=== PATIENT | male | born 1945 | race African-American/Black ===

== ENCOUNTER 2021-06-19 12:44 | Emergency (ER) | payer OTHER ==
[~2021-06-19] VITALS: Ht 177.8 cm; Wt 95.3 kg
[2021-06-19 12:50] VITALS: BP 161/86
[2021-06-19 13:27] LABS: ABSOLUTE NEUTROPHILS 2.1 thou/uL (1.4-8.2); BASOPHILS 0.3 % (0.0-2.0); HEMATOCRIT 41.3 % (42.0-52.0); HEMOGLOBIN 13.6 gm/dL (14.0-18.0); LYMPHOCYTES 36.3 % (24.0-44.0); MCH 28.3 pg (26.0-34.0); MCV 85.6 fL (80.0-100.0); MONOCYTES 13.1 % (1.0-8.0); PLATELET COUNT 240 thou/uL (150-400); POLYS 49.3 % (36.0-66.0); RBC 4.82 mil/uL (4.50-6.00); RDW 15.5 % (10.5-14.5); WBC 4.2 thou/uL (4.0-11.0)
[2021-06-19 13:41] LABS: CALCIUM 8.8 mg/dL (8.5-10.1); CREATININE 1.2 mg/dL (0.7-1.3); POTASSIUM 4.5 mmol/L (3.5-5.1)
[2021-06-19 13:46] LABS: URINE BILIRUBIN NEGATIVE (Negative); URINE BLOOD NEGATIVE (Negative); URINE CLARITY CLEAR; URINE COLOR YELLOW; URINE GLUCOSE-RANDOM* NEGATIVE (Negative); URINE KETONES TRACE (Negative); URINE LEUKOCYTES-REFLEX NEGATIVE (Negative); URINE NITRITE-REFLEX NEGATIVE (Negative); URINE PROTEIN (DIPSTICK) TRACE (Negative); URINE SPECIFIC GRAVITY >= 1.030 (1.005-1.035); URINE UROBILINOGEN >= 8.0 E.U./dl (0.2-1.0)
[2021-06-19 13:48] LABS: ALBUMIN 3.6 g/dL (3.4-5.0); TOTAL BILIRUBIN 0.4 mg/dL (0.2-1.0); TOTAL PROTEIN 7.2 g/dL (6.4-8.2)
--- NOTE | 2021-06-19 14:42 | EKG ---
[place] [address] [facility] [place] 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 : 1945 Requested By: Kristina Mortensen Order Number: [id number] MD: Paulo Dominguez Measurements Intervals Rogers Rate: 71 P: 65 DE: 143 QRS: -18 QRSD: 69 T: 44 QT: 614 QTc: 668 Interpretive Statements Sinus rhythm Borderline left axis deviation Abnormal R-wave progression, early transition Borderline T abnormalities, anterior leads Prolonged QT interval No previous ECG available for comparison Electronically Signed On 06-19-2021 14:42:11 CDT by Paulo Dominguez [email or web address] <ELECTRONICALLY SIGNED> By: Paulo Dominguez MD, [facility] 06/19/21 1442 1331 1331 Paulo Dominguez MD, FACC /EPI
== END 2021-06-19 14:36 ==
LOC: ER 12:44
PROVIDERS: Physician Assistant
DX: F91.1 Conduct disorder, childhood-onset type (principal); F03.90 Unspecified dementia, unspecified severity, without behavioral disturbance, psychotic disturbance, mood disturbance, and anxiety; F98.8 Other specified behavioral and emotional disorders with onset usually occurring in childhood and adolescence; Z88.6 Allergy status to analgesic agent; Z20.822 Contact with and (suspected) exposure to COVID-19

== ENCOUNTER 2021-06-19 14:46 | Inpatient (IN) | payer OTHER ==
[~2021-06-19] VITALS: Ht 172.7 cm; Wt 69.0 kg
--- NOTE | 2021-06-19 15:37 | NUR ---
PATIENT 75 YEAR OLD MALE WHO ARRIVED ON UNIT AT 15:10 - RESIDES AT TERRACE - AGGRESSIVE AND THREATENING TO STAFF, ATTACKING PEERS WITH BUTTER KNIFE DURING CONFRONTATION IN DINING TATE, VOWING TO KILOL EVERYONE, THROWING THINGS AT PEOPLE, SEXUALLY INAPPROPRIATE BEHAVIOR - CLIMBING INTO BED WITH FEMALE PATIENTS, EXPOSING HIMSELF IN PUBLIC, MASTURBATING AND NOT RESPONDING POSITIVELY TO REDIRECTION TO STOP HIS BEHAVIOR. PATIENT ARRIVED CALM AND COOPERATIVE. DIFFICULT TO UNDERSTAND WHEN COMMUNICATING WITH STAFF. STATES USES WALKER AND WHEELCHAIR AT FACILITY - HAS ABNORMAL GAIT AND UNSTEADY AT TIMES PER PATIENT AND FACILITY. HAS BEEN ON SEROQUEL AND INCREASED STEADILY. PATIENT STATES HAD FLU SHOT LAST FALL AND NO COVID VACCINES. PATIENT HAS HISTORY OF CHF, MALNUTRITION, CKD, DYSPHAGIA, URINE RETENTION BPH, HYPOKALEMIA. ALLERGIC TO DIPHENHYDRAMINE, BENADRYL. PATIENT GUARDIAN COUSIN JAMILA FOX AT [phone]. PATIENT ON REGULAR DIET - CHANGED INTO YELLOW SHIRT AND SOCKS.
[2021-06-19 20:08] VITALS: BP 153/65
--- NOTE | 2021-06-20 02:35 | NUR ---
06-19-21 CARE TRANSFERRED 0 OBSERVED PT SITTING IN DAY ROOM SOCIALIZING WITH OTHERS. LATER PT AAOX2, VSS, RR EVEN AND NONLABORED ON RA. PT DENIES SI/HI AND PAIN. PT PRESENTS PLESANT, CALM AND COOPEATIVE, PT SOFT SPOKEN AND HAS DIFFICULTIE ARTICULATING WORDS, PT VERY WILLING TO COMMUNICATE. DURING MEDICATION ADMIN PT HAD NO DIFFICULTIES TAKING MEDICATION WHOLE. PT WILL CONTINUE TO BE MONITOR PER [facility] PROTOCOL.
[2021-06-20 06:53] LABS: CHOLESTEROL 201 mg/dL (<200); HDL CHOLESTEROL 41 mg/dL (>40); LDL CHOLESTEROL 137 mg/dL (<100); TC:HDL 4.9 Ratio (Not establshd); TRIGLYCERIDE 117 mg/dL (<150); VLDL 23 mg/dL (<40)
[2021-06-20 06:56] LABS: SERUM ASSESSMENT Clear
[2021-06-20 07:22] LABS: FOLIC ACID 13.3 ng/mL (8.6-58.9)
[2021-06-20 09:18] VITALS: BP 133/78
--- NOTE | 2021-06-20 16:05 | EKG ---
[place] [address] [facility] [place] [address] ELECTROCARDIOGRAM REPORT Name: ESTEBAN HARDIN Room #: 52-B ADM IN M.R.#: [id number] Admission: 06/19/21 Attend Phys: Oumar Orosco DO Discharge: Date of : 45 Report #: [id number] 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 : 1945 Requested By: Oumar Orosco Order Number: [id number] MD: Paulo Dominguez Measurements Intervals Chaplin Rate: 67 P: 59 LA: 142 QRS: -17 QRSD: 86 T: 17 QT: 476 QTc: 503 Interpretive Statements Sinus rhythm Borderline left axis deviation Abnrm T, consider ischemia, anterolateral lds Prolonged QT interval No previous ECG available for comparison Electronically Signed On 06-20-2021 16:05:26 CDT by Paulo Dominguez [email or web address] <ELECTRONICALLY SIGNED> By: Paulo Dominguez MD, [facility] 06/20/21 1605 D: 07/0 1010 Paulo Dominguez MD, FACC /EPI
--- NOTE | 2021-06-20 17:40 | NUR ---
Assumed pt care at 0700. pt was in the day room. Alert and oriented to person. pt was calm and cooperative with care. Denies si/hi, denies pain. Vital stable, lungs clear on auscultation. Pt took meds whole with thin liquid, no difficulty noted. Ambulates with a w/c. No sign of acute distress noted upon assessment. At this time pt is in the day room. Will continue to monitor.
[2021-06-20 20:14] VITALS: BP 151/73
[2021-06-20 23:06] LABS: GLYCOHEMOGLOBIN (HGB A1C) 5.7 % (4.8-5.6)
--- NOTE | 2021-06-21 03:53 | NUR ---
06-20-21 CARE TRANSFERRED 1899. LATER PT AAOX2, VSS, RR EVEN AND NONLABRED ON RA, PT DENIES PAIN AND SI/HI. PT PRESENTS PLESANT, CALM AND COOPEATIVE. DURING MEDICATIN ADMIN PT HAD NO DIFFICULTIES. PT WILL CONTINUE TO BE MONITOR PER [facility] PROTOCOL.
--- NOTE | 2021-06-21 08:42 | NUR ---
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 PMH: CHF, CKD, hx malnutrition, hx dysphagia, hx COVID+, schizophrenia. Noted with good intakes >75% since admit. BLE edema present. Chol 201, A1c 5.7, TSH, folate and B12 WNL. Current weight/BMI appropriate. Will follow weight and intakes; low nutrition risk at this time.
[2021-06-21 09:27] VITALS: BP 138/82
[2021-06-21 13:38] LABS: URINE BILIRUBIN NEGATIVE (Negative); URINE BLOOD 2+ (Negative); URINE CLARITY CLEAR; URINE COLOR YELLOW; URINE GLUCOSE-RANDOM* NEGATIVE (Negative); URINE KETONES NEGATIVE (Negative); URINE LEUKOCYTES-REFLEX NEGATIVE (Negative); URINE NITRITE-REFLEX NEGATIVE (Negative); URINE PROTEIN (DIPSTICK) TRACE (Negative); URINE UROBILINOGEN >= 8.0 E.U./dl (0.2-1.0)
--- NOTE | 2021-06-21 13:42 | NUR ---
Assumed pt care at 0700. pt was in the day room. Alert and oriented to self. Denies si/hi, c/o of lower abdominal pain. Pt took meds whole, no difficulty noted. AMbulates with a w/c. pt is a one person assist. Magnesium hydroxide and Polyethylene glycol was administered. Reassessment pt had a formed bowel movement. Calm and cooperative with care.Reassessement pt denies stomach pain. Pt is currently in the day room watching TV. UA collected and sent to Lab. Will continue to Monitor pt.
[2021-06-21 14:11] LABS: CASTS None Seen /LPF (None Seen); SQUAMOUS 0-3 Few /LPF (0-3)
[2021-06-21 14:12] LABS: BACTERIA-REFLEX 1-9 Few /HPF (None Seen); CRYSTALS None Seen /LPF (None Seen); MUCUS 0-3 Light strn/LPF (None Seen); URINE RBC >20 Many /HPF (NONE SEEN); URINE WBC-REFLEX 0-5 Rare /HPF (0-5)
--- NOTE | 2021-06-21 16:23 | H ---
[facility] [address] [place] [address] HISTORY AND PHYSICAL Name: ESTEBAN HARDIN Room #: 521B-B ADM IN M.R.#: [id number] Admission: 06/19/21 Attend Phys: Oumar Orosco DO Discharge: Date of : 45 Report #: [id number] THIS REPORT FOR: cc: FAM - Family physician unknown FAM - Family physician unknown Oumar Orosco DO ~ DATE OF SERVICE: 06/19/2021 INPATIENT PSYCHIATRIC EVALUATION ATTENDING PSYCHIATRIST: Oumar Orosco DO OLIVER FILTER OPERATOR: Melissa Augustin and Ramiro Fox MD, and his hospitalist team. SOURCES OF INFORMATION: Emergency room records, records from [facility], and brief interview with the patient. I left a voicemail with his cousin and guardian, Landon Yeung, to page me, so add information. REASON FOR ADMISSION: Aggressive at [facility], threatening staff and patients with a butter knife, threatening to kill everyone, throwing things at people, pulling penis out and masturbating in the dining room. Recently, his quetiapine was increased. He was sent to [facility] and sent back to [facility]. HISTORY OF PRESENT ILLNESS: A 75-year-old black male. He was sent out from [facility] to [facility]. The patient had an incident of threatening others with butter knife, also threatening to kill people, allegedly pulling out his penis and masturbating, recently [facility] out to [facility] CURRENT MEDICAL PROBLEMS/PAST MEDICAL HISTORY: Congestive heart failure, malnutrition, abnormal gait, chronic kidney disease, dysphagia, urinary retention, hypokalemia. ALLERGIES: CODEINE, DIPHENHYDRAMINE. PRIMARY CARE PROVIDER: His primary care physician is Dr. Wilian Flaherty at [phone]. The patient otherwise has [facility] appointed guardian. COVID is negative on 06/18/2021 at [facility]. INFORMATION FROM THE NURSING FACILITY: Recent medications have included vitamin D3, MiraLax, Toviaz, Flomax, Nuedexta, Flonase, loratadine, Risperdal, Seroquel, melatonin, sertraline, lactulose, Depakote. Actually, I got a longer med list but [facility] [address] [place] [address] HISTORY AND PHYSICAL Name: ESTEBAN HARDIN Room #: 521B-B ADM IN M.R.#: [id number] Admission: 06/19/21 Attend Phys: Oumar Orosco DO Discharge: Date of : 45 Report #: [id number] it is cut off partially, but appears to be Neudexta, loratadine, risperidone, and Seroquel. Seroquel was allegedly up to 150 mg twice a day and 400 mg at bedtime. He was on Depakote sprinkles as well 375 mg 1 time a day at seizures and 250 mg at bedtime. More recent notes have included exhibiting in front of female resident, was later sent out to [facility] on 06/15/2021. Looking through his [facility] diagnoses, he appears to be demented. There is a diagnosis of encephalopathy and schizophrenia. I do not see a dementia on documentation. LABORATORY DATA: White count 4.2, H and H 13.6 and 41.3, platelet count 240. Electrolytes: Sodium 139, potassium 4.3, chloride 107, bicarbonate 22, anion gap 10, BUN 17, creatinine 1.0, estimated GFR 72, glucose 81, calcium 8.8, AST 16, ALT 8, alkaline phosphatase 57, total protein 7.2, albumin 3.6, triglycerides 117, cholesterol 201, LDL 137, HDL 41. B12 of 445, folate 13.3. TSH 0.865. Urinalysis: Trace protein, trace ketones, greater than 8 urobilinogen, otherwise negative. COVID-19 Arzola test was negative. MEDICATIONS: Currently in the hospital, MiraLax 17 g oral daily, vitamin D 2000 international units oral daily, Seroquel 100 mg oral 3 times a day at 9:00 a.m., 3:00 p.m., and 9 p.m., Depakote DR 275 mg p.o. b.i.d., Zofran 4 mg q. 6 hours p.r.n., otherwise just house p.r.n. like Tylenol, Cepacol. VITAL SIGNS: Today, temperature 36.2, pulse 69, respirations 17, BP 132/70, O2 sat 99%. Additional information from the emergency room. REVIEW OF SYSTEMS: Unable to be obtained due to his speaking problems and dementia. Weight 95.26 kilos. PHYSICAL EXAMINATION: Grossly negative. EKG was done, shows sinus rhythm, rate 77. Left axis deviation, no ST changes, no STEMI, QTc prolonged at 668. I have ordered EKG to be repeated today. Unable at this time to obtain social and developmental history due to being unable to reach the guardian and the patient's mentation. MENTAL STATUS EXAMINATION: Ill appearing, age-appearing black male. Attention limited. Concentration limited. The patient knew he was in the hospital, but stated month was April. Speech abnormal, some degree of dysarthria. Thought content with relative poverty. mood/affect- smiling at times but often constricted, difficult to ascertain given dysarthria [facility] [address] [place] [address] HISTORY AND PHYSICAL Name: ESTEBAN HARDIN Room #: 521B-B ADM IN M.R.#: [id number] Admission: 06/19/21 Attend Phys: Oumar Orosco DO Discharge: Date of : 45 Report #: [id number] Denied suicidal or homicidal ideations. No auditory, visual, or tactile hallucination. Memory known to be impaired. Insight impaired. Fund of knowledge well below average. FORMULATION: A 75-year-old black male sent out from [facility] with progressive disinhibited behavior. DIAGNOSES: At this time, major neurocognitive disorder, etiology unspecified with behavioral disturbance, schizophrenia, major depression by history. Patient's medical comorbidities include chronic diastolic heart failure, hypertension, chronic kidney disease, history of COVID-19 infection without sequelae. PLAN: The patient is admitted by guardian to the Geriatric Psychiatry Unit. Evaluate, stabilize. Hospitalist is consulted. I reduced his Seroquel to 100 mg 3 times a day. He is not on Nuedexta; in this hospital, it is nonformulary. We will see what his EKG looks like today. We really want to get that QTc under 550 milliseconds.- later I checked and repeat EKG was 503 ms ESTIMATED LENGTH OF STAY: 5-10 days. STRENGTHS: He is insured, has a guardian has placement. WEAKNESSES: Advanced dementia and numerous medical comorbidities. Time spent on this case about 55 minutes. I got paged back from cousin who is his guardian, She states a nurse at [facility] was not treating him nice and that is why he has been not behvaing well. She reports him being lifetime illiterate and very low education. She does not view him as demented. I discussed it was hard to diagnose dementia in somone with very low level of education who cannot talk or read. <ELECTRONICALLY SIGNED> By: Oumar Orosco DO 06/21/21 1623 1056 1303 Oumar Orosco DO /nt
[2021-06-21 16:24] VITALS: BP 123/71
--- NOTE | 2021-06-22 04:20 | NUR ---
06-21-21 CARE TRANSFERRED 0 OBSERVED PT SITTING IN W/CHAIR AT TABLE IN DAY ROOM. PT AAOX2, VSS, RR EVEN AND NONLABORED ON RA, PT DENIES PAIN AND SI/HI. PT REPORTED HE WAS READY FOR HIS MEDICATION. DURING MEDICATIN ADMIN PT HAD NO DIFFICLTIES TAKING MEDICATION WHOLE WITH WATER, THEN PT WAS TAKEN WITH MECHANISM ASSEMBLER ASSISTANCE TO BED. LATER ASSISTED PT WILL BED ADJUSTED FOR COMFORT, BED IN LOWEST POSITION, LOCKED AND ALARM ON. PT WILL CONTINUE TO BE MONITOR PER [facility] PROTCOL.
--- NOTE | 2021-06-22 10:01 | NUR ---
PT ALERT AND ORIENTED TIMES THREE. VSS. PT DENIES SI/HI/AH/VH/PAIN/SOA. PT INTERACTS WELL WITH STAFF AND PEERS. PT ATTENDS GROUPS. PT TOLERATES MEDS AND MEALS. WILL CONTINUE TO MONITOR.
[2021-06-22 10:22] VITALS: BP 144/66
[2021-06-22 19:20] VITALS: BP 145/71
[2021-06-22 19:30] VITALS: BP 145/71
--- NOTE | 2021-06-22 21:52 | NUR ---
Assumed care on 06/22/21 @ 1900, seated in the diana chair at a table in the day room, with 1:1 staff member attending the patient. Loud outbursts noted periodically. Calms and becomes drowsy, eyes closed, respirations even and unlabored. Awakens and is able to take meds whole with pudding and water, returns to sleep. Hi fall risk noted. BM today on 06/22/21. Will continue to monitor as per unit protocol for safety and comfort.
[2021-06-23 09:48] VITALS: BP 128/66
--- NOTE | 2021-06-23 10:35 | NUR ---
Assumed pt care at 0700. pt was sleeping in his room. Alert and oriented to person. Denies si/hi, denies pain at this time. Assessments completed, vss. Pt took meds whole, no difficulty noted. Makes needs known to staff. Ambulates with a w/c. Calm and cooperative with care. At this time pt is in the day room watching TV. WILL CONTINUE TO MONITOR.
[2021-06-23 19:30] VITALS: BP 136/75
[2021-06-23 20:33] VITALS: BP 136/75
--- NOTE | 2021-06-23 21:28 | NUR ---
Assumed care on 06/23/21 @ 1900, in bed resting with covers pulled over the head, Cooperated with assessment and compliant with medications, taking meds whole with water.
[2021-06-24 10:36] VITALS: BP 113/71
--- NOTE | 2021-06-24 16:27 | NUR ---
Assumed pt care at 0700. Pt was in his room sleeping. ALert and oriented to person. Assessments completed, vss. DEnies si/hi, denies pain at this time. No sign of acute distress noted upon assessments.Calm and inappropriate with care. Took meds whole, no difficulty noted. Ambulates with a w/c. pt had a moderate soft bowel movement this shift. Pt was inappropriate with female staff. pt Stated he wants to get with female staff. Pt was redirected. Pt continued to make inappropriate remarks towards staff during toileting. At this time Pt is in the hallway resting on the Alissa chair. Will continue to monitor.
[2021-06-24 19:22] VITALS: BP 139/65
[2021-06-24 20:10] VITALS: BP 139/65
--- NOTE | 2021-06-25 04:26 | NUR ---
PATIENT CARE WAS RESUMED AT 1900. HE IS ALERT AND ORINETED. MODERATE ASSIST WITH CARE. ABLE TO VERBALIZED NEEDS. LUNGS ARE CLEAR , BS ACTIVE X4 QUADS. HE IS CONTINET OF BOWEL AND BLADER.DENIES PAINS/GERALD.YELLOW TOP AND NONE SKID SOCK IS ON. BED IS LOW, LOCKED AND ALARMEDD. NO CONCERN NOTED AT THIS TIME. Q 12MINUTES ROUND/CHECK ACTIVE AND YELLEW ON. HE TTO HIS MEDS WHOLE. CONTINUE CARE.
--- NOTE | 2021-06-25 08:23 | NUR ---
0823 ASSUMED CARE OF PT FROM OVERNIGHT NURSE. PT ALERT TO PERSON PT NOT ABLE TO TELL THIS NURSE WHERE HE WAS AT PRESENTLY. PT IN ROOM DURING ASSESSMENT. PT DENIES PAIN, SI/hi/AH/vh. PT LUNGS CLEAR. PT DROWSY DURING MEDICATION ADMINISTRATION. PT BOWEL SOUNDS PRESENT. PT ABDOMEN SOFT. VSS, WILL CONT TO MONITOR PT FOR SAFETY AND NEEDS.
[2021-06-25 09:48] VITALS: BP 135/67
--- NOTE | 2021-06-25 14:59 | NUR ---
1400 while pt getting ADL's performed pt became agitated and hitting, cursing and throwing items around the dining room. pt was not able to be redirected. contacted for orders. pt given 10 mg IM Geodon. pt was assisted to bed by BHJonathan and . pt still continuing to curse, shake bed and trying to get up without assistance. pt currently in bed resting. will cont to monitor pt for behaviors and safety.
[2021-06-25 15:28] LABS: URINE BILIRUBIN NEGATIVE (Negative); URINE BLOOD NEGATIVE (Negative); URINE CLARITY CLEAR; URINE COLOR YELLOW; URINE GLUCOSE-RANDOM* NEGATIVE (Negative); URINE KETONES TRACE (Negative); URINE LEUKOCYTES-REFLEX NEGATIVE (Negative); URINE NITRITE-REFLEX NEGATIVE (Negative); URINE PROTEIN (DIPSTICK) NEGATIVE (Negative); URINE SPECIFIC GRAVITY 1.025 (1.005-1.035); URINE UROBILINOGEN 0.2 E.U./dl (0.2-1.0)
--- NOTE | 2021-06-25 15:36 | NUR ---
1500 pt was straight cath per order. Police security standing in room for staff safety. pt tolerated procedure well. urine sample taken to Lab without issue. will cont to monitor pt for safety and behaviors.
[2021-06-25 15:53] LABS: ABSOLUTE NEUTROPHILS 2.1 thou/uL (1.4-8.2); BASOPHILS 0.5 % (0.0-2.0); EOSINOPHILS 1.7 % (0.0-3.0); HEMOGLOBIN 14.2 gm/dL (14.0-18.0); LYMPHOCYTES 27.7 % (24.0-44.0); MCH 28.8 pg (26.0-34.0); MCHC 33.9 g/dL (28.0-37.0); MCV 84.9 fL (80.0-100.0); PLATELET COUNT 261 thou/uL (150-400); POLYS 59.1 % (36.0-66.0); RBC 4.95 mil/uL (4.50-6.00); RDW 15.2 % (10.5-14.5); WBC 3.6 thou/uL (4.0-11.0)
[2021-06-25 16:01] LABS: CALCIUM 9.3 mg/dL (8.5-10.1); CREATININE 1.2 mg/dL (0.7-1.3); POTASSIUM 4.4 mmol/L (3.5-5.1)
--- NOTE | 2021-06-25 17:26 | NUR ---
ELISEO recieved a call from MARCELA for and update on the Pt. ELISEO provided an update on the Pt and informed Pt was not yet ready for discharge. This is due to the Pt inappropiate sexual acting out over the weekend. The DON had no further questions or concerns. SW team will continue to follow
--- NOTE | 2021-06-25 18:35 | NUR ---
1700 SQUARING MACHINE OPERATOR staff when into pt room to assist pt to come out for dinner. pt pulled his pants down and asked SQUARING MACHINE OPERATOR staff to suck his Sangeeta. Staff told pt that was inappropriate and walked out of the room. Staff when in to assIST PT ROOM MATE. PT ASKED THE STAFF TO GET HER BIG FAT CUNT OUT OF THE ROOM SINCE SHE WOULD NOT SUCK HIS SANGEETA. Pt have been very inappropriate with staffs. AT this time pt is in the hallway screaming yelling and cursing. WIll continue to monitor.
[2021-06-25 20:11] VITALS: BP 135/65
[2021-06-25 20:15] VITALS: BP 135/65
--- NOTE | 2021-06-26 05:08 | NUR ---
PATIENT CARE WAS RESUMED AT 1900. HE IS ALERT AND ORIENTED X1. HE AMBULATES WITH WHEELCHAIR. DENIES ANY DISCOMFORT. LUNGS ARE CLEAR BS ACTIVE X4 QUADS. HE IS ABLE TO VERBALISE HIS NEEDS. INCONTINIET OF BOEWL AND BLADDER. MAS ASSIST WITH TRANSFER. HE TOOK HIS MEDS WHOLE. HE WAS SCREAMING AT ANOTHER PATIENT THINKING THE PATINET WAS TALKING ABOUT HIM. HE DENIES PAINS/SI/AVH/HI. BED IS LOW, LOCKED AND ALARMED. HE HAS A YELLOW TOP ND NON SKID SOCKS ON. Q 12MINUTES CHECK ARE ON GOING, CONTINUE CARE.
[2021-06-26 09:30] VITALS: BP 138/79
--- NOTE | 2021-06-26 12:11 | NUR ---
RT Progress Note- Alvarado has been fairly present and active in both the milieu and recreation therapy groups. Avlarado has not displayed any adverse behavior during structured programming. DAMAGED FREIGHT INSPECTOR will continue to encourage participation and progress towards goals.
--- NOTE | 2021-06-26 13:21 | NUR ---
Assumed care at 0700, patient was still in bed sleeping, got him up for vital sign and breakfast, he was irritable, ate 50% of his meal, agitated and pushing chairs, doctor gave an order of Amalia. he went to his room and fell asleep, active bowel sound, lungs clear, he refused his morning medication, VSS, he had a bm, ambulate with walker/ wheelchair. he denies SI/HI/AVH. will continue to monitor patient
--- NOTE | 2021-06-26 16:15 | NUR ---
ELISEO provided a verbal update to Delisa Burgos's Membership Secretary on 06/23. At that time pt was not acting out. ELISEO reviewed pt's documentation over the weekend and saw that he did act out and had some inappropiate behaviors. ELISEO faxed updates to Delisa Constantino. ELISEO will continue to follow pt during his stay on this unit.
--- NOTE | 2021-06-26 16:46 | NUR ---
At 16:25, patient called for update then talked to her , she called back and stated that her complained of his throat hurting, and wanted to know patient's weight, patient was assessed and he stated he never told his about any throat hurting that he just wanted to sleep, vital sign 106/43,87,18, 98.2, 02 100% blood suger 89.
[2021-06-26 20:03] VITALS: BP 145/69
--- NOTE | 2021-06-27 05:02 | NUR ---
[facility] WAS [facility] AT 1900. HE IS ABLE T COMMUNICATE SOME BEHAVOUR UNYT. SHE DENIES PAIN/SI/AVT. HE HAS A YELLOW TOP AND NON SKID SOCKS. BED IS LOW, LOCKED. HE AMBULATES WITH W/CHAIR.DENIES PAINS/SI/AVH/HI. HE IS INCONTINENT OF BOWEL AND BLADER. HE TOOK HIS MEDS WHOLE. CONTINUE CARE AMD MONITOR.
[2021-06-27 10:40] VITALS: BP 121/62
--- NOTE | 2021-06-27 10:48 | NUR ---
Followup: remains on [facility]. Has been tolerating meals witj 50-100% intake. Constipated and has had bowel movement 8/3 and on bowel regimen. Started on folic acid. Wt has dropped 5 lb-will continue to monitor as pt with improved ability to feed self was reported in team meeting today. Low nutrition risk.
--- NOTE | 2021-06-27 14:57 | NUR ---
11:15 am, patient became agitated and hitting the wall, geodon was given, he calm down for 3hr and continue with the same behavior. will continue to monitor patient.
--- NOTE | 2021-06-27 15:08 | NUR ---
Patient care was resumed by 0700, he was in bed sleeping, he had 7 hours of sleep, he took his morning medication, assessment was completed, lungs clear, active bowel sound, got him out for breakfast, his vital sign were normal, he was calm untill 11:05 when he became aggressive and agitated, ambulate on his wheel chair.
[2021-06-27 19:34] VITALS: BP 188/90
[2021-06-27 19:45] VITALS: BP 188/90
--- NOTE | 2021-06-27 22:28 | NUR ---
Assumed care on 06/27/21 @ 1900, seated in his wheel chair in the day room at a table. Cooperated with assessment, wnl, VSS. Compliant with medication, taking meds whole in applesauce and with depakote sprinkles in applesauce. Within 15 minutes of taking meds, became agitated, yelling, Im going to kill you, repeatedly and throwing anything that he could reach, which was magazines, remote, clipboard. New one time order obtained for Geodon 15mg IM, which was provided to patient in his bed with assistance from security x3 and nursing staff x1. continued to lie in bed and slept. Bed in low position, bed alarm set, will continue to monitor as per unit protocol for safety and comfort.
--- NOTE | 2021-06-28 10:40 | NUR ---
Linda with AT contacted SW to get a update on pt. SW explained to her that he is still having behaviors and she will get an update on what Dr. Orosco thinks should be the best behaviors. She said okay. SW team will continue to follow pt during his stay on this unit.
[2021-06-28 11:04] VITALS: BP 153/72
--- NOTE | 2021-06-28 12:18 | NUR ---
VISIBLE IN DAYROOM-SITTING IN WHEELCHAIR AND ATTENDS SCHEDULED GROUPS.COMPLIENT WITHTAKING MEDICATIONS WITHOUT RESISTANCE THIS AM. SPEECH IS MUMBLED DIFFICULT TO UNDERSTAND-CONVERSATION IS RAMBLING AND AT TIMES INCOHERENT. DENIES C/O PAIN/DISCOMFORT. DENIES SI/SH/HI. NO NOTED OR REPORTED AGITATION OR PHYSICALLY AGGRESSIVE BEHAVIOR NOTED OR REPORTED SO FAR THIS SHIFT.IS ABLE TO TRANSFER TO AND FROM COMMODE TO WITH SBA X1-REMAINS HIGH FALLS RISK
[2021-06-28 20:05] VITALS: BP 142/88
--- NOTE | 2021-06-29 01:28 | NUR ---
Assumed care on 06/28/21 @ 1900, seated in a diana chair for comfort in the day room. Resisted taking medications, crushed in pudding and began yelling obscenities and saying that we are going to shoot him. A second nurse offered him medication and he refused. Transferred to bed with x2 staff assist, patient at that time took meds. Toileted and voided urine, no BM out put on this shift so far. Bed in low position, bed alarm set for fall risk. Will continue to monitor for safety and comfort.
[2021-06-29 09:22] VITALS: BP 117/79
--- NOTE | 2021-06-29 12:45 | NUR ---
ELISEO and Dr. Orosco contacted Marisela to give an update. After doing so, Dr. Orosco explained that he would like to switch pt's meds to thorazine. Marisela okayed this change but said she has concerns about Delisa Constantino changing his meds. ELISEO explained to Marisela, as she did on 06/22 when she last spoke with her that there is a state Ombudsman she can have advocate for pt and if the NH is still mistreating pt that she can make a hotline to the state. ELISEO attached that information again to the [facility] welcome email she sent to . Marisela confirmed that she received the [facility] welcome email from ELISEO on 06/22. ELISEO faxed updates to Delisa Constantino. ELISEO team will continue to follow pt during his stay on this unit.
--- NOTE | 2021-06-29 17:17 | NUR ---
HAS HAD 2-3 EPISODES OF ACUTE AGITATION THIS SHIFT-EPISODES ALL BEGAN IN DAYROOM AND APPEAR UNPROVOKED-NO EXTERNAL TRIGGERS NOTED WITH THE EXCEPTION OF ONE EPISODE OF LOUD YELLING AND THREATNING BEHAVIOR THAT OCCURED WHEN HE SAW 2 SECURITY OFFICERS ENTER UNIT. 1ST VERBAL OUTBURST BEGAN AT APPROX 1045 WHEN ORELLANA BEGAN TO YELL LOUDLY YELLING OBSCENITIES AND MOVING WHEELCHAIR RAPIDLY TOWARD MD AND A FEMALE PT THAT WERE TALKING YELLING"I WILL KILL YOU-YOU STAY AWAY"SPEECH IS LOUD PRESSURED DIFFICULT TO UNDERSTAND BUT CONTINUED TO YELL LOUDLY AND RASIE FIST AND THREATEN PEERS/STAFF IN DAYROOM-SECURITY CONTACTED AND ESCORTED TO ROOM GEODON 15MG GIVEN IM IN RIGHT DELTOID -DID CALM AFTER APPROX 30 MINUTES 1;1 TIME IN ROOM WITH RN AND ABLE TO RESUME NORMAL DAYTIME ACTIVIITIES UNTIL APPROX 1500 WHEN HE AGAIN DISPLAYED SIMILIAR PATTERN OF BEHAVIORYELLING LOUDLY- THREATNING TO HIT STAFF AND/OR PEERS-APPLEARS TO BELIEVE THAT OTHERS ARE TRYING TO HURT HIM. SECURITY CONTACTED -THORAZINE 25MG GIVEN IM IN LEFT DELTOID-REQUIRED MECHANICAL HOLD BY SECURITY FOR ADMINISTRATION OF MEDICATION
[2021-06-29 19:35] VITALS: BP 110/63
[2021-06-29 23:52] VITALS: BP 110/63
--- NOTE | 2021-06-30 03:36 | NUR ---
06/29/2021 - Pt was in day room until about 2029, he became really agitated, unable to focus, yelling out, hitting chairs and saying threatening things. Attempt help pt re focus and reassure him he was in a safe environment did not help. Not able to take his medication PO, decision made to give the Thorazine IM, Security called and pt was assisted to bed. Discussed with pt that I would be giving him an injection of medication and he was able to verbalize okay. Medication instantly was effective he was much calmer and her took his other medication crushed in applesauce. He woke up at approx midnight, screaming and cursing, somehow he grabbed the bedside commode and was threatening everyone that came in the room to assist. Roommate moved to a different room and pt became calmer, Pt still continues to talk with himself. He exhibits signs of VH as he hits out at things and reacts as if he is under attack, This nurse tries to constantly reassure him that he is in a safe environment it seems to work for a few minutes and then he is back to yelling, cursing, screaming but it seems like he is trying to protect himself from something. Will continue to monitor throughout the shift. When he is able to focus and be redirected he is appropriate and will follow directions and simple commands.
[2021-06-30 09:09] VITALS: BP 138/79
--- NOTE | 2021-06-30 09:33 | NUR ---
0985 ASSUMED CARE OF PT FROM OVERNIGHT NURSE. PT LYING IN BED DURING ASSESSMENT. PT ALERT TIMES 1. PT WITH GURBLED SPEECH. PT AMBULATES WITH WHEELCHAIR. PT DENIES PAIN AT THIS TIME. PT DENIES SI/HI/AH/VH. PT LUNGS CLEAR. PT BOWEL SOUNDS PRESENT. PT TOOK MEDICATIONS WHOLE W WATER AND APPLESAUCE. PT IN DINING ROOM PARTICIPATING IN GROUP THERAPY. PT WITH NO BEHAVIORS AT THIS TIME. WILL CONT TO MONITOR PT FOR BEHAVIORS AND SAFETY.
--- NOTE | 2021-06-30 18:20 | NUR ---
1810 T stated that pt was having some drainage from nose. pt blowing his nose, no color noted to drainage. pt given box of tissues for any further post nasal dripping.
[2021-06-30 19:48] VITALS: BP 140/78
--- NOTE | 2021-06-30 22:48 | NUR ---
PATIENT IS AWAKE AND ALERT TO PERSON SITTING IN WHEELCHAIR IN THE DAY ROOM. PATIENT SPEECH IS HARD TO DECIPHER HIS WORDS ARE MUMBLED. PATIENT IS CALM AND COOPERATIVE TONIGHT. SEEMS SLEEPY AND LETHARGIC. PT WAS COOPERATIVE WITH HIS MEDICATIONS AND WENT TO BED AROUND 1999. PT DENIED ANY PAIN OR NEEDS. HE DID NOT WANT HIS HS SNACK TONIGHT. WILL CONTINUE TO MONITOR FOR CHANGE IN STATUS.
[2021-07-01 09:21] VITALS: BP 135/69
[2021-07-01 10:24] VITALS: BP 135/69
--- NOTE | 2021-07-01 11:57 | NUR ---
1157 RESUMMED CARE FROM OVERNIGHT SHIFT THIS AM, PATIENT IN ROOM SLEEPING QUIETLY. I CRUSHED PATIENTS MEDICATION AND GAVE IT TO HIM IN PUDDING. 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 AT TIMES IT HARD TO UNDERSTAND PATIENT PATIENTS ABDOMEN SOFT BOWEL SOUNDS PRESENT. PATIENTS LUNGS CLEAR PATIENT CALM COOPERATIVE HAS NOT DISPLAYED ANY BEHAVIORS. PATIENT SAT IN GROUP LISTENING TO THERAPIST APPEARED TO HAVE ENJOYED GROUP. WILL CONTINUE TO MONITOR PATIENT FOR SAFETY AND BEHAVIORS.
--- NOTE | 2021-07-01 12:09 | NUR ---
1200 RESUMMED CARE FROM OVERNIGHT SHIFT THIS AM PATIENT IN ROOM SLEEPING QUIETLY. PATIENT DID NOT GET UP TO EAT BREAKFAST SO I CRUSHED HIS MEDICATION AND PUT IN IN PUDDING. PATIENTS ABDOMEN SOFT BOWEL SOUNDS PRESENT PATIENTS LUNGS CLEAR. PATIENT UNABLE TO TELL ME ABOUT SI/HI/AH/VH AT PRESENT DUE TO COGNITIVE DO AND HAS SPEECH ASPHASIA. SOMETIMES IT IS DIFFICULT TO UNDERSTAND PATIENT. PATIENT CALM COOPERATIVE HAS NOT DISPLAYED ANY BEHAVIORS, WILL CONTINUE TO MONITOR PATIENT FOR SAFETY AND BEHAVIORS.
[2021-07-01 19:32] VITALS: BP 117/67
[2021-07-01 20:05] VITALS: BP 138/68
--- NOTE | 2021-07-02 03:26 | NUR ---
07-02-21 CARE TRANSFERRED 1899 OBSERVED PT SITTING IN RECLINER IN HALLWAY. LATER PT AAOX1, B/P 138/68, P 80, VSS, RR EVEN AND NONLABORED ON RA. PT DENIES SI/HI AND PAIN. OBSERVED NO S/S OF PAIN AND NO BEHAVIORS OF SI/HI. PT PRESENTS CONFUSED AND COOPERATIVE DURING NURSING ASSESSMENT. LATER OBSERVED PT IRRITABLE WITH INTERACTION OF A PEER, PT THREW BOX AT WALL. PT WAS EASILY REDIRECTED AND CALMED DOWN. LATER PT WAS IN BED AND COUGHING, PT SKIN W/D, PT BED READJUSTED TO APPROXIMATELY 40 DEGREE AND PT TOOK A DRINK OF WATER, LUNGS CLEAR. NO S/S OF ACUTE DISTRESS NOTED, PT WILL CONTINUE TO BE MONITOR PER [facility] PROTOCOL.
[2021-07-02 09:43] VITALS: BP 105/60
--- NOTE | 2021-07-02 10:45 | NUR ---
1045 assumed care of pt [facility]st. [facility] overnight nurse. pt lying in bed during assessment. pt lungs clear. pt does have a running nose, drainage clear at this time. pt denies pain. pt denies SI/HI/AH/VH during assessment. pt bowel sounds present and abdomen soft. pt LBM 07/01/21. pt took medications whole in applesauce with no issues. pt ambulates w ast of 1-2 to wheel chair. VSS. Awaiting results of Speech consult. will cont to monitor pt for behavior and safety.
--- NOTE | 2021-07-02 14:43 | NUR ---
1443 pt sitting in wheelchair sleeping. Pt refused to take Thorazine 50 mg in applesauce. Pt continues with dripping nose and coughing w no food or drink taken. will cont to monitor pt for behavior and safety.
--- NOTE | 2021-07-02 15:08 | NUR ---
1508 pt refused medication 50 mg of Thorazine, but when pt informed that he would be given an IM if he did not take medication, pt decided to take the pills PO. another set of 50 mg Thorazine removed from [facility] for pt to take.
--- NOTE | 2021-07-02 15:13 | NUR ---
ELISEO faxed updates for pt to Delisa Constantino. ELISEO team will continue to follow pt during his stay on this unit.
[2021-07-02 19:00] VITALS: BP 125/58
--- NOTE | 2021-07-03 02:40 | NUR ---
07-02-21 CARE TRANSFERRED 0 OBSERVED PT SITTING IN DAY ROOM AT TABLE. LATER PT AAOX1, VSS, RR EVEN AND NONLABORED ON RA, PT DENIES SI/HI AND PAIN. PT PRESENTS PLESANT, CALM AND COOPERATIVE THROUGHOUT NURSING ASSESSMENT. LIQUIDS PROMOTED AND PT DRANK 240ML. DURING MEDICATION ADMIN PT HAD NO DIFFICULTIED TAKING WITH APPLESAUCE. LATER PT WAS ASSISTED TO BED AND TOLIETED, PT BRIEF WAS HEAVY WITH YELLOW URINE, PT WAS CLEANED WITH SOAP AND WATER, BARRIER CREAM APPLIED R/T SLIGHT REDNESS NOTED. PT BED WAS ADJUSTED FOR COMFORT, LOWEST POSITION, LOCKED AND ALARM ON. LATER PT COUGHING AND RUNNING NOSE, PT SKIN W/D, LUNGS CLEAR. PT REPORTED HE HAS SEASONAL ALLERGIES, NOTED CLARTIN WAS STATED THIS AFTERNOON. PT WILL CONTINUE TO BE MONITOR PER [facility] PROTOCOL.
[2021-07-03 09:54] VITALS: BP 138/59
--- NOTE | 2021-07-03 10:33 | NUR ---
RT Progress Note- Christiano's participation in recreational therapy groups has been variable throughout this review period d/t disruptive behaviors. At times, Christiano seems to respond to internal stimuli, however chooses a person in the milieu to direct his behavioral response towards and becomes threatening- keeping him from participating in group. When calm, Christiano responds well to music and exercise programming in particular. DECKER OPERATOR will continue to encourage positive behavior and group participation.
--- NOTE | 2021-07-03 12:46 | NUR ---
Initially sleepy this AM but then became very agitated and refused meds. Alert and orientated to person and place but not to time. Denies SI/HI. Able to transfer with assistance to but unsteady when attempting to take steps. Slept most of AM. Currently in day room interacting with peers. Breath sounds clear. Reg HR auscultated. Color pink with brisk capillary refill and palpable peripheral pulses. +1 edema in lower extremities, CAMELIA hose placed. Incontinent of urine while attempting to urinate in BSC in another pts room. Active bowel sounds over soft, rounded abdomen.
--- NOTE | 2021-07-03 14:39 | NUR ---
ELISEO received a call from Linda with [employer]. She said she has not received any faxes. Confirmed that ELISEO has the right fax, and she said that likely someone has grabbed the information. ELISEO gave her a vebal update. ELISEO team will continue to follow pt during her stay on this unit.
[2021-07-03 19:38] VITALS: BP 134/72
--- NOTE | 2021-07-04 04:22 | NUR ---
07-03-21 CARE TRANSFERRED 0 OBSERVED PT IN W/CHAIR IN MOTION IN HALLWAY, LOOKING TENSE. LATER PT PRESENTED IRRITABLE, UNCOOPERATIVE AND REFUSING NURSING ASSESSMENT, PT DENIED PAIN AND SI/HI AND OBSERVED NO S/S OF PAIN OR SI/HI BEHAVIORS. PT WAS SITTING NEXT TO PEER THAT WAS INCREASING HIS AGITATION TOWARDS STAFF. DURING MEDICATION ADMIN PT STARTING SLAPPING THIS FINISH SAW OPERATOR HANDS AND WAS REFUSING MEDICATION. HCP Janee LEACH NP WAS CONSULTED AND ORDERS RECEIVED FOR MEMO HOLD FOR PRN IM. SECURITY WAS CALLED AND ASSISTED WITH MEMO HOLD. LATER PT WAS CALM AND RESTING AND ALLOWED REPOSITION FROM LEFT TO RIGHT SIDE LYING. PT WILL CONTINUE TO BE MONITOR PER [facility] PROTOCOL.
--- NOTE | 2021-07-04 09:33 | NUR ---
Followup: remains on [facility]. ST now following for dysphagia concerns as pt with generalized oral weakness and reduced mastication. Requires modified diet of [facility] altered ground, nectar liquids and swallow precautions. Still eating 80-100%. No new wt. On B12 and folic acid. Low nutrition risk
--- NOTE | 2021-07-04 14:21 | NUR ---
PATIENT APPROACHED AT 1400 WITH THORAZAINE CRUSHED IN ICE CREAM. PATIENT REFUSED AND SPIT ICE CREAM ON FLOOR. ATTEMPTED TO ENCOURAGE BUT WOULD NOT TAKE CALLED SECURITY TO ASSIST WHEN ADMINISTERING IM OF THORAZINE 37.5 MG. PATIENT HAD ORDER FOR IM IF ORAL MEDICATIONS THORAZINE. TOLERATED WELL.
--- NOTE | 2021-07-04 15:43 | NUR ---
PATIENT CARE ASSUMED AT 0700 - WAS SITTING IN DINING ROOM MOST OF THE DAY. HAS MOMENTS OF AGITATION WHERE HE WILL PUSH TABLES AND CHAIRS AROUND. ALERT TO SELF - ABLE TO HANDLE OWN ADL'S - TOLLLETING AND FEEDING ONESELF. AFFECT FLAT AND MOOD DETACHED AND IRRITATED. APPEARS TO BEHAVE BETTER WHEN ALONE AND DOES NOT INTERMINGLE WITH PEERS VERY WELL. EASILY AGITATED AND BECOMES RESISTIVE TO ANY CARES ATTEMPTED. PATIENT CHOOSES TO HELP HIMSELF. NO SUCCESS ADMINISTERING MEDICATIONS - CRUSHED IN PUDDING THIS MORNING AND THEN AGAIN IN ICE CREAM THIS AFTERNOON. BOTH TIMES HE SPIT IT OUT AND BECAME UPSET. GIVEN IM AND TOLERATED WELL.
[2021-07-04 19:15] VITALS: BP 123/66
[2021-07-04 19:30] VITALS: BP 123/66
--- NOTE | 2021-07-04 22:48 | NUR ---
Assumed care on 07/04/21 @ 1900, Seated by himself at a table in the day room, Took about half of meds crushed in pudding and drank some of thickened orange juice. Became agitated and spit the meds in pudding out. Noted to have a runny nose, blowing nose frequently. Retired to bed @ , bed in low position, bed alarm set. Will continue to monitor for safety and comforts as per unit protocol.
[2021-07-05 09:15] VITALS: BP 142/65
--- NOTE | 2021-07-05 10:26 | NUR ---
Assumed patient care 0700, patient sleeping on his bed, did not come out for breakfast, his temperture this morning is 99.3, he is coughing and has running nose. Doctor Phan and raj were notified, his lungs are clear, active bowel sound, incontinent of bladder and bowel movement, he ambulate with wheelchair, he took his morning medication crushed and mixed with yogurt, denies si/hi/avh. will continue to monitor patient.
[2021-07-05 11:03] VITALS: BP 147/67
[2021-07-05 11:52] LABS: URINE BILIRUBIN NEGATIVE (Negative); URINE BLOOD 1+ (Negative); URINE CLARITY CLEAR; URINE COLOR YELLOW; URINE GLUCOSE-RANDOM* NEGATIVE (Negative); URINE KETONES NEGATIVE (Negative); URINE LEUKOCYTES-REFLEX NEGATIVE (Negative); URINE NITRITE-REFLEX NEGATIVE (Negative); URINE PROTEIN (DIPSTICK) 1+ (Negative); URINE UROBILINOGEN >= 8.0 E.U./dl (0.2-1.0)
[2021-07-05 12:13] LABS: CASTS None Seen /LPF (None Seen); SQUAMOUS 0-3 Few /LPF (0-3)
[2021-07-05 12:17] LABS: BACTERIA-REFLEX 1-9 Few /HPF (None Seen); RENAL EPITHELIAL CELLS 0-3 Few /LPF (None Seen); URINE RBC 1-2 Rare /HPF (NONE SEEN); URINE WBC-REFLEX None Seen /HPF (0-5); YEAST-REFLEX Present (None Seen)
[2021-07-05 12:38] LABS: ABSOLUTE NEUTROPHILS 6.3 thou/uL (1.4-8.2); BASOPHILS 0.4 % (0.0-2.0); HEMATOCRIT 39.8 % (42.0-52.0); HEMOGLOBIN 13.2 gm/dL (14.0-18.0); LYMPHOCYTES 5.7 % (24.0-44.0); MCH 28.1 pg (26.0-34.0); MCHC 33.1 g/dL (28.0-37.0); MCV 84.7 fL (80.0-100.0); MONOCYTES 10.7 % (1.0-8.0); PLATELET COUNT 204 thou/uL (150-400); POLYS 83.2 % (36.0-66.0); RDW 15.1 % (10.5-14.5); WBC 7.6 thou/uL (4.0-11.0)
[2021-07-05 12:45] LABS: CALCIUM 9.1 mg/dL (8.5-10.1); CREATININE 1.3 mg/dL (0.7-1.3); POTASSIUM 4.3 mmol/L (3.5-5.1)
[2021-07-05 12:51] LABS: ALBUMIN 3.3 g/dL (3.4-5.0); MAGNESIUM 2.1 mg/dL (1.8-2.4); TOTAL BILIRUBIN 0.9 mg/dL (0.2-1.0); TOTAL PROTEIN 7.7 g/dL (6.4-8.2)
[2021-07-05 13:45] VITALS: BP 112/61
--- NOTE | 2021-07-05 15:13 | NUR ---
Sleeping with occassional groan. Skin warm to touch with RR 36-44. States name with vigorous tactile stimuli. No response to other questions, no speech/behavior suggestive of SI/HI. Breath sounds with slight rhonchi with expiratory wheeze. Slight subcostal retractions. O2 sats 91-93% on RA. Reg HR 100-110 auscultated. Color pink with 2 sec capillary refill and palpable peripheral pulses. No edema noted, CAMELIA hose placed. Incontinent of dark yellow urine. Active bowel sounds over soft, rounded abdomen. Hypopigmented area between buttocks, no breakdown. Mirza Chisholm and Ana Luisa notified of axillary temp of 102.4. Septic w/u done per order. RT states they are unable to do sputum cx d/t they are afraid of stimulating vagus nerve. Tylenol 650 mg PO given in thickened orange juice.
--- NOTE | 2021-07-05 16:41 | NUR ---
ELISEO faxed updates to Delisa Constantino. ELISEO provided verbal updates to Linda with AT. SW team will continue to follow pt during his stay on this unit.
[2021-07-05 17:20] VITALS: BP 124/60
[2021-07-05 19:33] VITALS: BP 122/58
--- NOTE | 2021-07-05 21:03 | NUR ---
Assumed patient care at 1900. Patient lying in bed, easily awakens to voice stimulation. RR 33, 95% O2, BP 122/58, T 99.4. Refusing HS meds after multiple attemps, clenching lips and saying "I don't want that shit", getting agitated. Calms when left alone. Declined needing toileting at this time. Not answering assessment questions, asks to be left alone. Q12 hour safety checks and fall precautions.
--- NOTE | 2021-07-06 06:31 | NUR ---
Patient slept 10.4 hours overnight, occasionally called out. Appeared to be yelling in his sleep at times. Breathing slowed to RR in 20s by this morning. Provided carleen care this morning. Currently lying in bed resting.
[2021-07-06 09:15] VITALS: BP 124/60
--- NOTE | 2021-07-06 12:34 | NUR ---
Sleeping this AM. Awakens to tactile stimuli. Able to state name, denies SI/HI. Took meds crushed in nectar thick orange juice. Able to drink 120cc in small sips and a few bites of breakfast. Got up in WC at approximately 10 AM with assistance. Breath sounds with slight expiratory rhonchi, good aeration. Reg HR auscultated. Color pink with brisk capillary refill and palpable peripheral pulses. Slight edema in feet, CAMELIA hose applied. Continent of 350 cc samuel urine in urinal. Small, brown, soft stool. Active bowel sounds over soft, rounded abdomen. Refusing lunch.
[2021-07-06 13:00] VITALS: BP 112/57
--- NOTE | 2021-07-06 15:43 | NUR ---
ELISEO spoke with Linda at [facility] concerning discharge. ELISEO provided a verbal update. Discharge scheduled for 07/09/2021 @ 1100. [facility] will transport the Pt. Tracking #[id number]
[2021-07-06 19:37] VITALS: BP 114/57
--- NOTE | 2021-07-07 04:35 | NUR ---
PATIENT IN HIS ROOM WITH EYES CLOSED UPON HS SHIFT ARRIVAL TO THE UNIT. PT EASILY AWAKENS WHEN STAFF APPROACHES BEDSIDE. PT IS ORIENTED TO SELF ONLY. SPEECH IS MOSTY MUMBLED WITH SOME WORDS UNDERSTOOD. PT DENIES ANY PAIN AT THIS TIME. VSS. NO DISTRESS NOTED. WAS ASSISTED WITH LINEN CHANGE HE IS INCONTINENT.
[2021-07-07 06:02] LABS: HEMATOCRIT 36.1 % (42.0-52.0); HEMOGLOBIN 12.1 gm/dL (14.0-18.0); MCH 28.4 pg (26.0-34.0); MCHC 33.5 g/dL (28.0-37.0); MCV 84.6 fL (80.0-100.0); RBC 4.27 mil/uL (4.50-6.00); RDW 14.8 % (10.5-14.5); WBC 7.6 thou/uL (4.0-11.0)
[2021-07-07 09:23] VITALS: BP 121/67
--- NOTE | 2021-07-07 11:27 | NUR ---
DID GET SELF UP OUT OF BED AND WHEEL SELF IN WC OUT TO HALLWAY STATING HE WANTED TO GET UP AND WATCH TV-DID EAT APPROX 45 PERCENT OF BREAKFAST PROVIDED BUT DID HAVE SOME COUGHING WHILE EATING-NEEDS REMINDERS TO SLOW DOWN AND SWALLOW BEFORE PUTTING MORE FOOD IN MOUTH. LUNG SOUNDS ARE DIMINISHED-NO COUGH NOTED EXCEPT WHILE EATING-AFEBRILE. NO AGITATION/YELLING/SPYCHOSIS NOTED SO FAR THIS SHIFT.
[2021-07-07 20:10] VITALS: BP 132/73
--- NOTE | 2021-07-07 23:05 | NUR ---
Assumed patient care this evening. Patient lying in bed, much more alert and interactive this evening than previous evenings. Patient said he spoke to his Auntie on the phone, which made him happy. Patient has a brighter affect. Denied any pain, SI/HI/AVH. No yelling out thus far this evening, though is overheard talking alone in his room. Compliant with med pass. Continues on fall precautions and q12 minute safety checks.
[2021-07-08 09:06] VITALS: BP 139/77
[2021-07-08 10:36] VITALS: BP 139/77
--- NOTE | 2021-07-08 12:06 | NUR ---
1205 RESUMMED CARE FROM OVERNIGHT SHIFT THIS AM, PATIENT IN ROOM LYING QUIET IN BED. WE GOT PATIENT UP AND DID HYGIENE PATIENT ATE BREAKFAST TOOK MEDICATION CRUSHED IN APPLESAUCE. PATIENT IS ORIENTED TO SELF ONLY PATIENT UNABLE TO TELL ME ABOUT SI/HI/AH/VH AT PRESENT DUE TO COGNITIVE DO. PATIENTS ABDOMEN SOFT BOWEL SOUNDS PRESENT PATIENTS LUNGS CLEAR. PATIENT IS SCHEDULED TO DC TOMMOROW TO [facility]. PATIENT HAS NOT DISPLAYED ANY BEHAVIORS WILL CONTINUE TO MONITOR PATIENT FOR SAFETY AND BEHAVIORS.
[2021-07-08 19:15] VITALS: BP 139/61
--- NOTE | 2021-07-08 22:23 | NUR ---
Resumed patient care this evening. Patient lying in bed, no s/s of distress or discomfort. No behaviors observed or reported. Compliant with medications, crushed in appleasauce. Patient denies any pain, SI, HI, AVH at this time. Continues on fall precautions and q12 minute safety checks.
[2021-07-09] MEDS ORDERED: CLARITIN10 M2 PO (08:16)
[2021-07-09] MEDS ORDERED: FLOMAX0.4 MG PO (08:17)
[2021-07-09] MEDS ORDERED: AUGMENTIN 875-1 EACH PO (08:17)
[2021-07-09] MEDS ORDERED: DEPAKOTE SPRIN125 MG PO (08:18)
[2021-07-09] MEDS ORDERED: MIRALAX17 GM PO (08:19)
[2021-07-09] MEDS ORDERED: FOLIC ACID1 MG PO (08:20)
[2021-07-09] MEDS ORDERED: B-12500 MCG PO (08:20)
[2021-07-09] MEDS ORDERED: VITAMIN D325 MC2 PO (08:21)
[2021-07-09 09:34] VITALS: BP 152/80
--- NOTE | 2021-07-09 13:34 | NUR ---
0700 assumed care. pt was in the day room alert. Alert and oriented to self. Assessments completed, vss. Took meds crushed in pudding. Denies si/hi, denies pain. No sign acute distress noted upon assessments. Pt was irritable and uncooperative but was redirectable. Ambulates with a w/c. pt is one person assist. Makes needs known to staff. Pt was D/C AT 1110 via w/c. pt left with his blongingings, d/c summary, d/c instrutions. Pt was transported by [facility]. ATTEMPTED TO CALL REPORT MUTIPLE TIMES TO [phone] AND IT WAS UNSUCCESSFUL.
--- NOTE | 2021-07-11 22:30 | D ---
[facility] [place] [address] DISCHARGE SUMMARY Name: ESTEBAN HARDIN Room #: 52- DIS IN M.R.#: [id number] Admission: 06/19/21 Attend Phys: Oumar Orosco DO Discharge: 07/09/21 Date of : 45 Report #: [id number] THIS REPORT FOR: cc: FAM - Family physician unknown FAM - Family physician unknown Oumar Orosco DO ~ DATE OF SERVICE: 07/09/2021 INPATIENT PSYCHIATRIC DISCHARGE SUMMARY ATTENDING PSYCHIATRIST: Oumar Orosco DO SUPERINTENDENT BUILDING: Vinnie Chisholm M.D. DISCHARGE DIAGNOSES: Major neurocognitive disorder, unspecified etiology with behavioral disturbance. Also, schizophrenia by history, probable intellectual disability as the patient is illiterate and cannot write according to his guardian. The patient is discharged to [facility] by receiving facility. The patient was on nectar thick liquids. He is on a mechanical soft diet. The patient needs assistance with ambulating and walking as he has gait disturbance. ADDITIONALLY MEDICAL COMORBIDITIES: In addition to those mentioned are possible pneumonia, on antibiotics; history of generalized seizure disorder; chronic dysphagia; chronic kidney disease; benign prostatic hypertrophy. LABORATORY DATA: Hematology for this patient on 07/07/2021, white count 7.6, H and H 12.1 and 36.1, platelet 215. Chemistries from 07/05/2021, sodium 139, potassium 4.3, chloride 104, bicarbonate 24, anion gap 11, BUN 14, creatinine 1.3, estimated GFR 65, glucose 114, calcium 9.1, magnesium 2.1, total bilirubin 0.9, AST 41, ALT 20, alkaline phosphatase 50, total protein 7.7, albumin 3.3. Urinalysis showed 8.5 pH, protein 1+, urine blood 1+, urobilinogen greater than 8, renal epithelial cells, few bacteria, few yeast present. Urine culture results from 07/05/2021 was no growth. Continuing blood cultures were done x2 on 07/05/2021 and showed no growth on the 07/06/2021 and 07/07/2021. DISCHARGE MEDICATIONS: For this patient are as follows, loratadine 10 mg oral daily for allergies, amoxicillin clavulanate 875 mg oral twice daily for 6 more days, tamsulosin 0.4 mg oral daily for BPH, Depakote sodium 750 mg oral twice daily for mood stabilization, polyethylene glycol 17 g oral daily, cyanocobalamin 500 mcg oral daily, folic acid 1 mg oral daily, vitamin D3 1000 international units oral daily. The patient again is discharging to long-term care at [facility]. REASON FOR ADMISSION: Back on 06/19/2021, 75-year-old black male sent to us from [facility] for aggressive behavior, threatening [place] [address] DISCHARGE SUMMARY Name: ESTEBAN HARDIN Room #: 521B-B DIS IN M.R.#: [id number] Admission: 06/19/21 Attend Phys: Oumar Orosco DO Discharge: 07/09/21 Date of : 45 Report #: [id number] allegedly with a butter knife, threatening to kill people, throwing things at people, also some inappropriate sexual behavior, masturbating. Apparently, he had been recently sent to [facility] and sent back to nursing facility with things unchanged. HOSPITAL COURSE: The patient was admitted to Geriatric Psychiatry Unit. He proved to be a difficult patient as initially he was well behaved, then we had some rather assaultive outbursts. The patient was initially tried on a Seroquel regimen without much success. Amalia had been given IM backup. I then moved him to a chlorpromazine regimen. The patient developed a fever of 102 with possible pneumonia and discussion with the hospitalist, I elected to holiday all his antipsychotic medication. He improved. He was well behaved. He did remain a bit oppositional with taking medication. I spoke to his guardian Erin to the admission, she disputed that he had a dementia given his very low level of education it will be difficult to quantitatively prove the dementia. On the day of discharge, the patient was not suicidal, homicidal, felt to be stable for discharge back to long-term care facility. PHYSICAL EXAMINATION: VITAL SIGNS: On day of discharge, temperature 35.2, pulse 75, respirations 17, BP 152/80, O2 sat 98%. MUSCULOSKELETAL: In wheelchair, slightly unkempt. MENTAL STATUS EXAMINATION: This is a well-developed, ill-appearing black male appearing older than stated age. mood/affect- constricted congruent Attention limited. Concentration limited. Speech variably verbal. Thought process nonlinear. Thought content, delusional at times making reference to police and things like that, unable to assess well for not suicidality or homicidality, was not self-injurious,. Memory known to be impaired. Insight is impaired, judgment is impaired. Fund of knowledge well below average. Prognosis for this patient is quite guarded given his age of 75, assume presence of neurodegenerative disorder, his long-term care placement and overall medical condition. <ELECTRONICALLY SIGNED> By: Oumar Orosco, 07/11/21 [phone] Oumar Orosco, /nt
== END 2021-07-09 13:53 | DRG 884 ==
LOC: SBH 14:46
PROVIDERS: Internal Medicine; ADMIT Psychiatry & Neurology Psychiatry; ATTEND Psychiatry & Neurology Psychiatry
DX: F03.91 Unspecified dementia, unspecified severity, with behavioral disturbance (principal); N18.9 Chronic kidney disease, unspecified; F79 Unspecified intellectual disabilities; J18.9 Pneumonia, unspecified organism; I50.32 Chronic diastolic (congestive) heart failure; I13.0 Hypertensive heart and chronic kidney disease with heart failure and stage 1 through stage 4 chronic kidney disease, or unspecified chronic kidney disease; G93.49 Other encephalopathy; Z20.822 Contact with and (suspected) exposure to COVID-19; F20.9 Schizophrenia, unspecified; G40.409 Other generalized epilepsy and epileptic syndromes, not intractable, without status epilepticus; R13.10 Dysphagia, unspecified; N40.0 Benign prostatic hyperplasia without lower urinary tract symptoms; F32.9 Major depressive disorder, single episode, unspecified; M19.90 Unspecified osteoarthritis, unspecified site; K59.00 Constipation, unspecified; R53.81 Other malaise; Z79.899 Other long term (current) drug therapy; Z88.6 Allergy status to analgesic agent; Z88.8 Allergy status to other drugs, medicaments and biological substances; Z86.16 Personal history of COVID-19
CPT/HCPCS: 10880

== ENCOUNTER 2021-12-24 21:00 | Emergency (ER) | payer OTHER ==
[~2021-12-24] VITALS: Ht 170.2 cm; Wt 74.8 kg
[~2021-12-24 21:00] MED LIST: AUGMENTIN 875-1 EACH PO; B-12500 MCG PO; CLARITIN10 M2 PO; DEPAKOTE SPRIN125 MG PO; FLOMAX0.4 MG PO; FOLIC ACID1 MG PO; MIRALAX17 GM PO; VITAMIN D325 MC2 PO
[2021-12-24 22:09] LABS: ABSOLUTE NEUTROPHILS 3.3 thou/uL (1.4-8.2); BASOPHILS 0.5 % (0.0-2.0); HEMATOCRIT 38.4 % (42.0-52.0); HEMOGLOBIN 12.7 gm/dL (14.0-18.0); LYMPHOCYTES 22.5 % (24.0-44.0); MCH 27.5 pg (26.0-34.0); MCHC 33.2 g/dL (28.0-37.0); MCV 82.9 fL (80.0-100.0); MONOCYTES 12.2 % (1.0-8.0); PLATELET COUNT 218 thou/uL (150-400); POLYS 63.8 % (36.0-66.0); RBC 4.63 mil/uL (4.50-6.00); RDW 18.7 % (10.5-14.5); WBC 5.1 thou/uL (4.0-11.0)
[2021-12-24 22:14] LABS: CALCIUM 9.3 mg/dL (8.5-10.1); POTASSIUM 3.8 mmol/L (3.5-5.1)
[2021-12-24 22:20] LABS: ALBUMIN 3.9 g/dL (3.4-5.0); TOTAL BILIRUBIN 0.6 mg/dL (0.2-1.0); TOTAL PROTEIN 7.3 g/dL (6.4-8.2)
[2021-12-24 22:49] LABS: URINE BILIRUBIN NEGATIVE (Negative); URINE BLOOD NEGATIVE (Negative); URINE CLARITY CLEAR; URINE COLOR YELLOW; URINE GLUCOSE-RANDOM* NEGATIVE (Negative); URINE KETONES NEGATIVE (Negative); URINE LEUKOCYTES-REFLEX NEGATIVE (Negative); URINE NITRITE-REFLEX NEGATIVE (Negative); URINE PROTEIN (DIPSTICK) NEGATIVE (Negative); URINE SPECIFIC GRAVITY 1.025 (1.005-1.035); URINE UROBILINOGEN 0.2 E.U./dl (0.2-1.0)
[2021-12-25 00:22] VITALS: BP 129/78
--- NOTE | 2021-12-25 07:42 | EKG ---
[address] [place] [place] [address] ELECTROCARDIOGRAM REPORT Name: ESTEBAN HARDIN I [id number] Admission: 12/24/21 Attend Phys: Discharge: 12/25/21 Date of : 45 Report #: [id number] [facility] ED Test Date: 2021-12-24 Test Time: 22:03:03 Pat Name: ESTEBAN HARDIN Department: Room: Gender: M [employer] Launch Commander: frank : 1945 Requested By: Natasha Rasmussen Order Number: [id number] MD: Manuel Kim Measurements Intervals [place] Rate: 81 P: 73 MI: 142 QRS: -14 QRSD: 102 T: QT: 382 QTc: 444 Interpretive Statements Sinus rhythm Abnormal R-wave progression, early transition Borderline T wave abnormalities Compared to ECG 06/20/2021 10:10:41 T wave inversion is no longer present Electronically Signed On 12-25-2021 7:41:52 DAM OPERATOR by Manuel Kim [email or web address] <ELECTRONICALLY SIGNED> By: Manuel Kim MD, [facility] 12/25/21 0741 02 02 Manuel Kim MD, FACC /EPI
== END 2021-12-25 00:25 | disposition home or self-care (01) ==
LOC: ER 21:00
PROVIDERS: Nurse Practitioner
DX: R55 Syncope and collapse (principal); F20.9 Schizophrenia, unspecified; I13.0 Hypertensive heart and chronic kidney disease with heart failure and stage 1 through stage 4 chronic kidney disease, or unspecified chronic kidney disease; N18.9 Chronic kidney disease, unspecified; I50.9 Heart failure, unspecified; Z86.16 Personal history of COVID-19; Z79.891 Long term (current) use of opiate analgesic; Z79.899 Other long term (current) drug therapy; Z88.5 Allergy status to narcotic agent; Z88.8 Allergy status to other drugs, medicaments and biological substances; W18.30XA Fall on same level, unspecified, initial encounter; Y93.89 Activity, other specified; Y92.89 Other specified places as the place of occurrence of the external cause; Y99.8 Other external cause status